=== PATIENT | female | born 1960 | race Caucasian/White ===

== ENCOUNTER 2022-01-28 02:08 | Day surgery (SDC) | payer BC, SELFPAY ==
[2022-01-22 09:45] VITALS: BMI 25.7
--- NOTE | 2022-01-22 09:50 | PC.NURSE ---
Report to the Outpatient Waiting Room, entrance under the green pavilion located off [facility], at time _0700_ on date _01/28/22_. Planned Procedure Time: __0900 _. Time changes happen often and if your time is changed the preop area will call you the afternoon before. - You and your visitor will be asked to self-screen and do not enter if you have any COVID symptoms. - We encourage only one visitor and NO visitors under age 16 are allowed at this time. Your visitor will receive communication by the phone number that is given day of service. - The patient visitor is requested to social distance or may leave the building when not with patient due to restrictions. - A mask is required within the hospital. Patients may have clear liquids (water, carbonated beverages, clear teas, apple juice) until 3 hours prior to surgery with a maximum of 20 ounces. - No food from midnight until time of surgery - Infants may have breast milk until 4 hours before surgery, formula 6 hours prior to surgery. - Children will be allowed to drink immediately following surgery. If applicable, please bring a bottle or sippy cup to assist with drinking. Juice, water, soda, and popsicles are readily available. For infants on formula, please bring formula the day of surgery. Pacifiers are allowed. Take the following medications with a SIP of water the morning of surgery: ___NONE Medications to discontinue per physician NONE Date to take last dose Please no make-up, nail mauritanian, hairspray, perfume, deodorant, or body powder the day of surgery. No jewelry (including any body piercings) or valuables the day of surgery, leave them at home. Please take a shower or bath the night before, or the morning of, surgery with an antibacterial soap. Wear comfortable, loose fitting clothing. Children are encouraged to wear pajamas. - Jewelry must be removed prior to entering the operating room. Rings and piercings that are not removed may be cut off. - The hospital will not accept responsibility for valuables. - Please leave all valuables, including medications, at home the day of surgery. If you are going home after surgery, a licensed p d driver must drive you home. - NO public transportation without another adult. - We recommend that an adult stay with you for 24 hours following discharge. - We also recommend that you do not drive, make important decision, drink alcoholic beverages, or take any drugs that were not prescribed by your health care provider for at least 24 hours after your discharge time. For Pediatric surgeries, we recommend two adults accompany the child home. Follow any additional instructions given to you from your surgeon. If you or anyone in your household have experienced Covid symptoms in the past week, please notify your surgeon or the nurse liaison at the phone number below for possible testing. Telephone instructions given to __PATIENT_and asked if any additional questions and then verbalized understanding. Patient advised to call surgeon office or pre surgery nurse liaison [phone] if any additional questions.
[2022-01-28] VITALS (7 sets, daily range): BP systolic 109–128; BP diastolic 69–87; PULSE 71–91; RESP 14–18; TEMP 36.2–36.3; O2SAT 95–100
--- NOTE | 2022-01-28 07:18 | PM.IMHP ---
H&P: HPI History of Present Illness Date/Time: 01/28/22 07:18 Chief Complaint: left parotid mass Narrative: left parotid mass Review of Systems Review of Systems: All systems reviewed & are unremarkable except as noted in HPI and below PMFSH Social History Social History Smoking status: Never smoker Alcohol intake: current Alcohol use details: 1 PER MONTH Living arrangements: with family Meds Home Medications and Allergies Home Medications Medication Instructions Recorded Confirmed Type No Home Medications 01/22/22 01/22/22 History Allergies Allergy/AdvReac Type Severity Reaction Status Date / Time amoxicillin [From Augmentin] Allergy Hives Verified 01/22/22 09:43 clavulanic acid Allergy Hives Verified 01/22/22 09:43 [From Augmentin] Exam Narrative: left 2cm tail of parotid mass, FNA consistent with pleomorphic adenoma. VII fully intact. Assessment and Plan Assessment and plan (1) Pleomorphic adenoma of parotid gland: Code(s): D11.0 - Benign neoplasm of parotid gland Status: Acute Plan Here for left superficial parotidectomy for left pleomorphic adenoma. r/b/a reviewed, pt understands and agrees to proceed with surgery. Refer to outpt H&P for full details.
--- NOTE | 2022-01-28 07:20 | WPDHPUPDATE1 ---
History and Physical Update Update Date/Time: 01/28/22 07:20 History and Physical has been reviewed, including an updated exam of the patient. There are NO changes in the patient's condition. Risks, benefits, and alternatives have been discussed and questions answered. Patient agrees to proceed with procedure.
[2022-01-28] MEDS: LACTATED RINGERS 1,000 ML 30 ML IV CONT ×2 (08:00→11:09)
--- NOTE | 2022-01-28 08:23 | P.PNAN_ITS ---
Anes - Initial Pre Proc Eval Procedure: Operation Date: 01/28/22 09:00 Proposed Procedures p Left Superficial Parotidectomy - Quan Solis MD Date/Time: 01/28/22 08:23 Surgeon: Quan Solis MD Pre Op Diagnosis: Parotid Mass- Left Patient Data Age: 61 Gender: F Height: 1.65 m Weight: 70.95 kg Last Vital Signs Temp 36.3 C L 01/28/22 07:05 Pulse 71 01/28/22 07:05 Resp 16 01/28/22 07:05 BP 124/82 01/28/22 07:05 Pulse Ox 100 01/28/22 07:05 O2 Del Method Room Air 01/28/22 07:05 Allergies Allergy/AdvReac Type Severity Reaction Status Date / Time amoxicillin [From Augmentin] Allergy Intermediate Hives Verified 01/28/22 07:34 clavulanic acid Allergy Intermediate Hives Verified 01/28/22 07:34 [From Augmentin] Home Medications Medication Instructions Recorded Confirmed Type No Home Medications 01/22/22 01/28/22 History Patient hx anesthesia problems: none Family hx anesthesia problems: none Results Review: All pre-operative results and documents have been reviewed as part of the pre- operative evaluation. [facility] Surgical History Surgical History (Updated 01/28/22 @ 08:23 by Alok Posey MD) History of section Social History Social History Smoking status: Never smoker Alcohol intake: current Alcohol use details: 1 PER MONTH Living arrangements: with family Anes - Eval Final PreProcedure Day of Procedure 01/28/22 08:23 Patient weight: normal Heart: regular rate and rhythm Lungs: clear to auscultation Airway: Mallampati scale class II Neurological: alert and oriented Last oral intake: >/= 8 hours ASA classification: I Emergent: no Anesthetic plan: proceed Anesthesia type and monitoring: general ETT and standard monitoring Results Review: All pre-operative results and documents have been reviewed as part of the pre- operative evaluation. Informed Consent: The patient's anesthetic plan and its attendant risks and benefits were discussed with the patient/family/POA. Questions were solicited and answers provided to the satisfaction of the patient/family/POA.
[2022-01-28] MEDS: ceFAZolin 2 GM/D5W 50 ML 2 GM/50 ML BAG IVPB (09:04)
[2022-01-28] MEDS: MUPIROCIN 2% OINT 22 GM TUBE 1 APPLIC TOPICAL (10:54)
--- NOTE | 2022-01-28 11:03 | P.OP_ITS ---
Procedure Note - Detailed Date of Procedure 01/28/22 Pre-op Diagnosis Parotid Mass- Left Post-op Diagnosis Same Procedure Performed Left superficial and deep lobe parotidectomy Surgeon Quan Solis MD Anesthesia General Indications Left pleomorphic adenoma Findings The tumor was approximately 2cm in diameter, was found to be deep to the parotid gland adjacent to it and inferior to the facial nerve. It was occupying the space adjacent to the stylomastoid foramen, against the styloid process and just below the main trunk of the nerve. It was fully removed and the nerve was fully intact afterwards. The tumor had been ruptured during dissection and some of it spilled into the wound bed and this was copiously and metiuculously irrigated and washed out afterwards. Description of Procedure After informed consent was obtained the time out procedure was performed the patient was brought to the operating room placed on the operating table in the supine position. The patient was placed under general endotracheal anesthesia. A modified Yonis incision was marked out in the patient's left preauricular crease. 1% lidocaine with one 100,000 epinephrine was injected into the marked incision. The patient was prepped and draped in the usual fashion. A #15 scalpel was used to make the skin incision. This was carried down to the level of the greater auricular nerve.this nerve was dissected superiorly up to the patient's earlobe. The preauricular incision was also carried down to the level of the parotid fascia. The underlying tumor was palpated deep to the gland. The tail gland was then dissected free from SCM and elevated to reveal the mass deep to it in the stylomastoid foramen spac.e . Next the preauricular incision was carried down along the tragal cartilage and the tragal pointer using a fine dissector and bipolar electrocautery. The greater auricular nerve was sacrificed.? The posterior belly of the digastric muscle was identified after retracting the sternocleidomastoid muscle laterally. The main trunk of the facial nerve was identified in its normal anatomic position and preserved. As noted in the findings, the tumor was just below the main trunk of the nerve and in a very proximal location with a part of the tumor extending proximally right against the mastoid. The tumor was ruptured during manipulation as it was being carefully dissected out from behind the mastoid process while avoiding stretch or injury to the nerve. Some contents spilled. This was immediately suctioned and then the mass was fully released and removed. The nerve intraoperative monitor was utilized throughout the case and the facial nerve was confirmed using the prass probe.? Once the specimen was passed off the field the wound bed was carefully irrigated using warm saline solution numerous times with care to try and rinse out all potential sites of spillage. There was no evidence of any significant bleeding. The upper and lower divisions of the facial nerve were then stimulated at 1 mill iamp, and found to have greater than 1000 microvolts of stimulation. The wound was then closed in layers using 3-0 Vicryl and? 5-0 Prolene suture. The patient was then awakened from general anesthesia, extubated and transferred to recovery in stable condition. Estimated Blood Loss 20 Drains No Packing No Pathology Yes (left tail of deep lobe of parotid) Complications No immediate complications Condition Stable Disposition PACU
== END 2022-01-28 12:32 | disposition home or self-care (01) ==
PROVIDERS: PCP Family Medicine; Visit Provider Otolaryngology
PROC: (CPT 42410; principal; 2022-01-28 09:00)
DX: D11.0 Benign neoplasm of parotid gland (principal)
CPT/HCPCS: 42410; 88305; A9270; J0330; J0690; J1100; J1165; J2250; J2370; J2405; J2704; J3010; J7120